=== PATIENT | female | born 1980 | race Caucasian/White ===

== ENCOUNTER 2018-05-28 18:46 | Emergency (ER) ==
[2018-05-28 18:50] VITALS: BP 115/74; TEMP 97.9; BMI 23.3
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
[2018-05-28] MEDS ORDERED: SODIUM CHLORIDE 1,000 ML IV STA (19:13)
[2018-05-28] MEDS ORDERED: ROCEPHIN 1 GM in SODIUM CHLORIDE 50 ML IV STA (19:20)
[2018-05-28] MEDS ORDERED: AUGMENTIN 875-125 MG TAB PO STA (19:32)
[2018-05-28] MEDS ORDERED: MORPHINE 2 MG/ML SYRINGE IVP STA (19:33)
[2018-05-28] MEDS ORDERED: ZOFRAN 4 MG/2 ML IVP STA (19:35)
[2018-05-28] MEDS ORDERED: ROCEPHIN ONE (19:42)
== END 2018-05-28 21:10 | disposition short-term general hospital (02) ==
LOC: ED 18:46
DX: N76.2 Acute vulvitis (principal)
CPT/HCPCS: 36415; 80053; 85025; 87040; 87070; 87186; 96361; 96365; 96375; 99285